=== PATIENT | male | born 1990 | race African-American/Black ===

== ENCOUNTER 2024-07-04 09:34 | Outpatient (CLI) | payer OTHER | END 2024-07-04 09:35 | disposition home or self-care (01) | LOC: SCSMRI 09:34 | PROVIDERS: ATTEND Family Medicine | DX: S33.5XXD Sprain of ligaments of lumbar spine, subsequent encounter (principal); S46.091D Other injury of muscle(s) and tendon(s) of the rotator cuff of right shoulder, subsequent encounter; M19.011 Primary osteoarthritis, right shoulder; R93.7 Abnormal findings on diagnostic imaging of other parts of musculoskeletal system ==